=== PATIENT | female | born 1980 | race African-American/Black ===

== ENCOUNTER 2020-08-11 08:23 | Emergency (ER) | payer OTHER, SELFPAY ==
--- NOTE | 2020-08-11 08:32 | ED.GENADULT ---
HPI - General Adult General Chief complaint: Skin/Abscess/Foreign Body Stated complaint: Boil Time Seen by Provider: 08/11/20 08:32 Source: patient and RN notes reviewed Mode of arrival: ambulatory Limitations: no limitations History of Present Illness HPI narrative: 39-year-old -[place] female presents with complains of a boil to buttock with redness, tenderness, and swelling for the past 7 days. Bethany reports increase in tenderness and swelling over the past 48 hours making it uncomfortable to sit. Ibuprofen last this morning at 07:00 with little relief. Area is tender to touch. No drainage. History of skin abscess. No fever or chills. No abdominal pain, nausea, and vomiting. Tolerating po intake well. LMP 5 days ago. Remains active. Tetanus not up to date, will update today. The patient reports she had COVID-23 July 2020, no recent diagnosis or symptoms. The patient reports she is not waiting for the results of a COVID-19 lab test. The patient reports she do not have chills, weakness, or fatigue. The patient reports she do not have a new or worsening cough or shortness of breath. Denies chest pain. The patient reports she do not have any rhinorrhea, congestion, sore throat, loss of taste or smell, or diarrhea. Denies recent traveling. Denies concerns for COVID-19 or exposures been home with limited outdoor exposure except for essential household needs, work, and return home. At this time, patient is not suspected of having COVID-19. Some parts of this dictation were generated by voice recognition software and may contain typographical and/or grammatical inaccuracies. Related Data Allergies Allergy/AdvReac Type Severity Reaction Status Date / Time No Known Allergies Allergy Verified 08/11/20 08:30 Review of Systems Review of Systems: Narrative: CONSTITUTIONAL: Denies fever, chills, sweats. EYES: Denies visual changes, redness, discharge. ENT: Denies rhinorrhea, congestion, sore throat, otalgia. CARDIOVASCULAR: Denies chest pain, palpitations, edema. RESPIRATORY: Denies dyspnea, wheezing, cough. GASTROINTESTINAL: Denies abdominal pain, nausea, vomiting, diarrhea. SKIN: Denies rash or itching. Complains of a boil to buttock with redness, tenderness, and swelling. Denies drainage or open area. MUSCULOSKELETAL: Denies acute back pain, joint pain, or myalgia. NEUROLOGIC: Denies numbness or focal weakness. PSYCHIATRIC: Denies anxiety or depression. All systems reviewed & are unremarkable except as noted in HPI and below. [facility] Past Medical History Medical History Breech presentation Constipation Endometritis following delivery Gestational diabetes mellitus (GDM) affecting , antepartum Sterilization UTI (urinary tract infection) following delivery Surgical History Surgical History H/O: Family History Family History Father Hypertension Mother Hypertension Diabetes mellitus Social History Social History Smoking status: Never smoker Alcohol intake: never Substance use: never Substance use type: does not use Gender identity (if verbalized by the patient): Female Spiritual care concerns: No Agree to blood products: Yes Comments At time of signature, agree with nurse past medical, surgical, social, and family history. There is relevant patient's past medical history pertinent to the presenting complaint, no relevant family history pertinent to the presenting complaint. Exam Narrative: Exam Narrative: GENERAL: This is a well-nourished, well-developed patient, in no apparent distress. Talking in full sentences without deficit and ambulate with steady gait without dyspnea. HEAD: Normocephalic, atraumatic. EYES: PERRL. Sclera clear/white. Vision is g
[2020-08-11 08:36] VITALS: BP 132/85; PULSE 102; RESP 16; TEMP 36.4; O2SAT 100
[2020-08-11] MEDS: TETANUS,DIPHTHERIA,AC PERTUSSIS ADULT (0.5 ML) BOOSTRIX IM (08:53)
== END 2020-08-11 09:08 | disposition home or self-care (01) ==
PROVIDERS: Emergency Provider Nurse Practitioner Family
DX: L02.31 Cutaneous abscess of buttock (principal); Z23 Encounter for immunization
CPT/HCPCS: 90471; 90715; 99213; G0463

== ENCOUNTER 2021-01-27 18:38 | Emergency (ER) | payer OTHER, SELFPAY ==
--- NOTE | ~2021-01-27 | CT_ITS ---
EXAMINATION: CT abdomen pelvis w con INDICATION: Lower abdominal pain and vaginal bleeding TECHNIQUE: Computed tomographic images of the abdomen and pelvis were obtained after the administrati on of 100 cc of Omnipaque 350 intravenous contrast. The dose-length product (DLP) was 632.54 mGy-cm. Automated exposure control and iterative reconstruction technique were employed. COMPARISON: 06/13/2019 FINDINGS: Minimal dependent atelectasis is present in the lung bases. The heart size is normal. The l iver, spleen, pancreas, gallbladder, and adrenal glands are normal. The kidneys are unremarkable. No pathologically enlarged abdominal or pelvic lymph nodes are identified. There is no free intraperiton eal gas or evidence of bowel obstruction. There is a greater than normal number of fluid-filled, nond istended small bowel loops. The visualized osseous structures are unremarkable. IMPRESSION: 1. CT findings suggestive of enteritis. Reviewed, dictated and finalized at location A.
[2021-01-27 20:26] VITALS: BP 154/116; PULSE 98; RESP 14; TEMP 36.8; O2SAT 100
[2021-01-27 21:33] VITALS: BP 150/94; PULSE 78; RESP 16; TEMP 36.8; O2SAT 99
--- NOTE | 2021-01-27 21:38 | ED.FEMALEGU ---
HPI - Female Genitourinary General Chief complaint: Vaginal Bleeding Stated complaint: PELVIC PAIN, VAGINAL BLEEDING Time Seen by Provider: 01/27/21 21:37 Source: patient Mode of arrival: ambulatory Limitations: no limitations History of Present Illness HPI Narrative: Patient is a 40-year-old female who presents for evaluation of lower abdominal pain, pelvic cramping and vaginal bleeding. Patient states that she had a normal period about a week and a half ago, experienced some light spotting and bleeding today which is abnormal for her. Reports she has had some lower abdominal pain and bloating type feeling. Pain is sharp, cramping in nature in the left lower abdomen. No flank pain. No dysuria or hematuria. Patient denies brisk bleeding, no large blood clots. No lightheadedness, dizziness or palpitations. Patient reports history of tubal ligation, states her [employer] is Dr. Trujillo. She denies history of fibroids or ovarian cyst. No recent sexual intercourse. No history of endometriosis. No history of sexually transmitted infection. Related Data Allergies Allergy/AdvReac Type Severity Reaction Status Date / Time No Known Allergies Allergy Verified 08/11/20 08:30 Review of Systems Review of Systems: Narrative: CONSTITUTIONAL: Denies fever, chills, or sweats. EYES: Denies visual changes, redness, or discharge. ENT: Denies rhinorrhea, congestion, sore throat, or otalgia. CARDIOVASCULAR: Denies chest pain, palpitations, or edema. RESPIRATORY: Denies cough or dyspnea. GASTROINTESTINAL: Reports lower abdominal pain, mild nausea without vomiting, denies diarrhea GENITOURINARY: Denies dysuria or hematuria. Reports vaginal bleeding. SKIN: Denies rash or itching. MUSCULOSKELETAL: Denies back pain, joint pain, or myalgia. NEUROLOGIC: Denies headache, numbness, or weakness. [facility] Past Medical History Medical History Breech presentation Constipation Endometritis following delivery Gestational diabetes mellitus (GDM) affecting , antepartum Sterilization UTI (urinary tract infection) following delivery Surgical History Surgical History H/O: Family History Family History Father Hypertension Mother Hypertension Diabetes mellitus Social History Social History Smoking status: Never smoker Alcohol intake: never Substance use: never Substance use type: does not use Gender identity (if verbalized by the patient): Female Spiritual care concerns: No Agree to blood products: Yes Exam Narrative: Exam Narrative: GENERAL: Awake, alert, conversant HEAD: Normocephalic, atraumatic. EYES: PERRLA and EOMI. ENT: Nares clear, no rhinorrhea or epistaxis. Mucous membranes moist. NECK: Supple. CHEST: No respiratory distress, breathing even and non labored HEART: Regular rate, sinus rhythm ABDOMEN:Non distended, mildly tender in the right and left lower quadrant without guarding, no rebound or rigidity Labia majora and minora normal without lesions. Vagina with scant blood. No brisk bleeding. No cervical motion tenderness. No adnexal tenderness or fullness bilaterally. No other discharge present. EXTREMITIES: Normal range of motion. No edema. SKIN: Warm, dry, no rash. NEURO:No focal deficits. Alert and oriented x3 Course Vital Signs Vital signs: Vital Signs Temperature 36.8 C 01/27/21 20:26 Pulse Rate 98 01/27/21 20:26 Respiratory Rate 14 01/27/21 20:26 Blood Pressure 154/116 H 01/27/21 20:26 Pulse Oximetry 100 01/27/21 20:26 Temperature 36.8 C 01/27/21 21:33 Pulse Rate 78 01/27/21 23:05 Respiratory Rate 18 01/27/21 23:05 Blood Pressure 148/72 H 01/27/21 23:05 Pulse Oximetry 99 01/27/21 23:05 MDM - Female Genitourinary MDM Narrative Medical deci
[2021-01-27 22:08] LABS: Add Urine Microscopic? YES; Appearance Urine Clear (Clear); Bilirubin Urine Negative (Negative); Blood Urine 2+ (Negative); Color Urine Yellow (Yellow); Glucose Urine UA Negative (Negative); Ketones Urine Negative (Negative); Leukocyte Esterase Ur Negative LEU/UL (Negative); Mucus Urine Few /lpf; Nitrate Urine Negative (Negative); Protein Urine Negative (Negative); RBC Urine 0-2 /hpf (0-2); Specific Grav Ur 1.023 (1.001-1.035); Squamous Epithelial Cell Urine Many /hpf (Few); Urobilinogen Urine Negative mg/dL (<2.0); WBC Urine 0-3 /hpf
[2021-01-27 22:48] LABS: Basophils Percent Auto 0.2 % (0.2-1.2); Eosinophils Absolute Auto 0.1 K/mm3 (0-0.3); Eosinophils Percent Auto 1.1 % (0-4.4); Hematocrit 37.4 % (37.0-47.0); Hemoglobin 11.4 g/dL (12.0-15.0); Immature Granulocyte Absolute 0.04 K/mm3 (0.00-0.031); Immature Granulocyte Percent A 0.3 % (0-0.5); Lymphocytes Absolute Auto 3.11 K/mm3 (0.9-3.2); Mean Corpuscular HGB Conc 30.5 g/dl (32-36); Mean Corpuscular Hemoglobin 25.4 pg (26-34); Mean Corpuscular Volume 83.3 fl (80-100); Mean Platelet Volume 12.3 fl (7.4-10.4); Monocytes Absolute Auto 0.7 K/mm3 (0.1-0.6); Monocytes Percent Auto 5.5 % (2.6-8.5); Neutrophils Absolute Auto 8.4 K/mm3 (1.3-6.7); Neutrophils Percent Auto 67.9 % (45.5-73.1); Platelet Count Result 232 k/mm3 (150-375); Red Blood Count 4.49 M/mm3 (4.2-5.4); Red Cell Distribution Width 14.2 % (11.5-14.5); White Blood Count 12.5 K/mm3 (4.5-10.0)
[2021-01-27 22:58] LABS: Alanine Aminotransferase 16 U/L (4-35); Albumin Level 4.3 g/dL (3.5-5.1); Alkaline Phosphatase 91 U/L (38-126); Anion Gap 9 mmol/L (8-16); Aspartate Amino Transferase 17 U/L (14-36); Bilirubin,Total 0.3 mg/dL (0.2-1.3); Blood Urea Nitrogen 10 mg/dL (7-17); Calcium 8.8 mg/dL (8.4-10.2); Carbon Dioxide 27 mmol/L (22-30); Chloride 104 mmol/L (98-107); Estimated CRCL calculation 99 ml/min; Estimated Glomerular Filt Rate > 60; Glucose 93 mg/dL (65-110); Lipase 95 U/L (23-300); Potassium 3.5 mmol/L (3.4-5.0); Sodium 140 mmol/L (137-145)
[2021-01-27] MEDS: MORPHINE SULFATE (*CRX) 4 MG/ML INJ IV PUSH (23:03)
[2021-01-27] MEDS: ONDANSETRON INJ 4 MG/2 ML VIAL IV PUSH (23:04)
[2021-01-27 23:05] VITALS: BP 148/72; PULSE 78; RESP 18; O2SAT 99
--- NOTE | 2021-01-27 23:10 | PC.NURSE ---
report to [facility]
[2021-01-28 00:50] VITALS: BP 130/80; PULSE 66; RESP 14; O2SAT 97
== END 2021-01-28 00:50 | disposition home or self-care (01) ==
PROVIDERS: Emergency Provider Emergency Medicine
DX: K52.9 Noninfective gastroenteritis and colitis, unspecified (principal); N93.9 Abnormal uterine and vaginal bleeding, unspecified; Z87.440 Personal history of urinary (tract) infections
CPT/HCPCS: 36415; 74177; 80053; 81001; 81025; 83690; 85025; 96374; 96375; 99284; J2270; J2405; Q9967